=== PATIENT | female | born 1985 | race Caucasian/White ===

== ENCOUNTER 2018-06-21 03:15 | Emergency (ER) | payer OTHER ==
[~2018-06-21] VITALS: Ht 152.4 cm; Wt 68.0 kg
[2018-06-21 03:20] VITALS: BP 144/93
[2018-06-21 03:41] VITALS: BP 144/93
== END 2018-06-21 03:41 | disposition home or self-care (01) ==
LOC: MED 03:15
DX: I10 Essential (primary) hypertension (principal); R11.0 Nausea; Z76.0 Encounter for issue of repeat prescription
CPT/HCPCS: 99283